=== PATIENT | male | born 2000 | race Caucasian/White ===

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

== ENCOUNTER 2019-05-03 18:45 | Emergency (ER) | payer MEDICAID, SELFPAY ==
[2019-05-03 18:51] VITALS: BP 187/100; PULSE 105; RESP 18; TEMP 36.5; O2SAT 97
--- NOTE | 2019-05-03 19:10 | ED.GENADUL_ITS ---
Discharge Plan Disposition Patient Disposition: HOME Condition: Improving Discharge Details Chief Complaint: DentalOral Clinical Impression: Odontalgia Primary Care Provider: Adina Flaherty ED Provider: Jose Juan Olivas Home Meds and New Rx's Prescriptions: New penicillin V potassium 500 mg tablet 500 mg PO TID 10 Days Qty: 30 RF: 0 Continued epinephrine [EpiPen 2-Josh] 0.3 MG/0.3 ML auto-injector 0.3 mg IJ PRN PRNRF: 0 ibuprofen 600 MG tablet 800 mg PO Q8H RF: 0 Discharge Instructions Instructions: Toothache (ED) Additional Instructions: Salt water gargles to reduce discomfort and speed healing. Please follow-up with dentistry to make an outpatient appointment. Take penicillin as prescribed. May continue ibuprofen 800 mg every 8 hours, with food. May also use Tylenol 650 to 975 mg every 6 hours as needed for pain. May use dental wax as provided and available [id number] to cover the broken tooth. Return for increasing pain, fever, facial swelling, or any other acute concern. Please follow[facility]up with [facility] for recheck and to recheck your blood pressure. Medical Decision Making 19-year-old male presents from home with 1 day of right upper tooth pain and mild face swelling this morning that has resolved. He states the pain was somewhat improved with ibuprofen. He has not seen a dentist in many years. He arrives in some pain with elevated blood pressure. His pulse was not tachycardic at the time of my evaluation. He has broken buccal cusps of tooth #1, and appears to be developing an apical dental infection. I offered dental block which she declined. Patient was given Tylenol, started on penicillin, referred for outpatient dentistry follow-up. He understands indications to seek reevaluation. HPI General Mode of arrival: ambulatory . Date/Time Provider Initiated Documentation: 05/03/19 18:46 . Limitations to Documentation: no limitations . Information obtained by: patient . History of Present Illness 19 year old M presents to the emergency department with the chief complaint of Right upper dental pain beginning last night, described as moderate, Quality is described as dull and constant, and is localized to the mouth. Patient reports no radiation. Patient started experiencing this hour(s) and it has been constant. No relieving factors improve symptom(s), No exacerbating factors reported . Patient notes other (No change to voice, no drooling, no sore throat); denies fever/chills. Patient did receive the following treatments prior to arrival, NSAID Related Data Home Medications Medication Instructions Recorded Confirmed epinephrine [EpiPen 2-Josh] 0.3 mg IJ PRN PRN 01/10/17 05/03/19 ibuprofen 800 mg PO Q8H 05/03/19 05/03/19 penicillin V potassium 500 mg PO TID 10 Days #30 tab 05/03/19 Previous Rx's Medication Instructions Recorded penicillin V potassium 500 mg PO TID 10 Days #30 tab 05/03/19 Allergies Allergy/AdvReac Type Severity Reaction Status Date / Time bee venom protein (honey bee) Allergy Anaphylaxsi Unverified 05/03/19 18:55 s General Stated Complaint: DentalOral YOBANI: 5 Review of Systems Narrative: See HPI, 4 systems reviewed and otherwise negative [facility] Medical History No acute medical problems (Acute) Surgical History (Updated 05/03/19 @ 18:56 by Lisa Maciel) No history of previous surgery (Acute) No pertinent past surgical history (Acute) Social History Smoking/Tobacco Use Status: Never Alcohol Intake: never Drug use: Never Substance use type: does not use Do you feel safe at home: Yes Do you feel safe in your relationship?: Yes Exam Narrative Exam Narrative: GEN: awake, alert, oriented 3. Pleasant, well groomed, interactive. HEAD: Normocephalic, atraumatic ENT: Mucous membranes moist, oropharynx with broken buccal cusps of tooth #1. Tender without fluctuance, no buccal or lingual swelling. External ear exam unremarkable EYES: PERRL, EOMI NECK: Full ROM, no JOSHUA, no menigismus CHEST/RESP: Nontender, clear to auscultation bilateral, no wheeze/rhonchi/rales CARDIOVASCULAR: RRR, not tachycardic at the time of my exam, no murmur, rub daniel. 2+ Rad pulse bilateral Neuro: Grossly normal neurologic exam, conversant, interactive. Psych: Speech fluent, thoughts congruent, affect normal Course Vital Signs Vital signs: Vital Signs Temperature 36.5 C 05/03/19 18:51 Pulse 105 H 05/03/19 18:51 Respiratory Rate 18 05/03/19 18:51 Blood Pressure 187/100 H 05/03/19 18:51 Pulse Oximetry 97 05/03/19 18:51 Temperature 36.5 C 05/03/19 18:51 Temperature Source Skin 05/03/19 18:51 Pulse 105 H 05/03/19 18:51 Respiratory Rate 18 05/03/19 18:51 Respiratory Effort Non-Labored 05/03/19 18:56 Blood Pressure 187/100 H 05/03/19 18:51 Pulse Oximetry 97 05/03/19 18:51 Pain Level 6 05/03/19 18:56
[2019-05-03] MEDS: Acetaminophen 500 MG TAB 1000 MG PO (19:26)
[2019-05-03] MEDS: Penicillin V POTASSIUM 500 MG TAB, 4 TABS/BTL PO (19:26)
== END 2019-05-03 19:35 | disposition home or self-care (01) ==
PROVIDERS: Emergency Provider Emergency Medicine; PCP Nurse Practitioner Family
DX: R68.84 Jaw pain (principal); R22.0 Localized swelling, mass and lump, head; R03.0 Elevated blood-pressure reading, without diagnosis of hypertension
CPT/HCPCS: 99283

== ENCOUNTER 2020-06-30 05:16 | Emergency (ER) | payer MEDICAID, SELFPAY ==
[2020-06-30 05:22] VITALS: BP 173/86; PULSE 98; RESP 16; TEMP 36.3; O2SAT 95
--- NOTE | 2020-06-30 05:23 | W.ED.GENAD ---
Discharge Plan Disposition Patient Disposition: HOME Condition: Stable Discharge Details Clinical Impression: Foot pain, right Primary Care Provider: Adina Flaherty ED Provider: Selwyn Orellana Home Meds and New Rx's Prescriptions: Continued epinephrine [EpiPen 2-Josh] 0.3 MG/0.3 ML auto-injector 0.3 mg IJ PRN PRNRF: 0 ibuprofen 600 MG tablet 800 mg PO Q8H RF: 0 lorazepam 1 mg Tablet 1 mg PO QHS PRNRF: 0 Discharge Instructions Instructions: Plantar Fasciitis (ED), Plantar Fasciitis Exercises (ED) Additional Instructions: Your xray was normal. I suspect you have plantar fasciitis follow up with your primary care provider if pain conitnues in a week if severe worsening pain, fevers or if you feel more ill return to the emergency department Stand Alone Forms: Work Release Medical Decision Making 20 yo male with no chronic medical problems comes in with right plantar foot pain. He denies any known injury or falls, but is on his feet frequently for work. He states he has pain on the plantar surface of his mid foot. NO fevers or swelling and no pain elsewhere. He has no swelling on exam, full range of motion of the ankle and toes with normal sensation and pulses. Does have pain with palpation to the plantar surface of the mid foot. Suspect plantar fascitis but will obtain xray to evaluate for possible stress fracture though unlikely based on exam. No findings to suggest septic joint or other infectious etiology at this time. xray unremarkable for fracture. Continues to have no signs of infection on exam, suspect plantar fascitis, will have him take prn tylenol and ibuprofen and advised to f/u with pcp if pain continues in a week Differential Diagnosis Differential Diagnosis: stress injury, fracture Imaging Data Radiologic Study: Attestation: I personally reviewed and interpreted this imaging study as follows: Imaging: X-Ray Radiologist's impression: IMPRESSION: Question mild swelling along the plantar surface of the foot No stress fracture noted HPI General Mode of arrival: ambulatory. Date/Time Provider Initiated Documentation: 06/30/20 05:22. Limitations to Documentation: no limitations. Information obtained by: patient. History of Present Illness 20 year old M presents to the emergency department with the chief complaint of right foot pain, described as moderate, Quality is described as aching, and is localized to the right and lower extremity. Patient reports no radiation. Patient started experiencing this day(s) (5) and it has been constant. Rest improves symptom(s), Other factors that worsen symptoms (standing on feet) . Patient notes no other symptoms.. Patient did receive the following treatments prior to arrival, NSAID Related Data Home Medications Medication Instructions Recorded Confirmed epinephrine [EpiPen 2-Josh] 0.3 mg IJ PRN PRN 01/10/17 06/30/20 ibuprofen 800 mg PO Q8H 05/03/19 06/30/20 lorazepam 1 mg PO QHS PRN 06/30/20 06/30/20 Allergies Allergy/AdvReac Type Severity Reaction Status Date / Time bee venom protein (honey bee) Allergy Anaphylaxsi Unverified 06/30/20 05:25 s General YOBANI: 5 Review of Systems All systems reviewed & are unremarkable except as noted in HPI and below Constitutional Constitutional: Denies chills, Denies fever(s) and Denies weakness Cardiovascular Cardiovascular: Denies chest pain and Denies dyspnea Respiratory Respiratory: Denies cough and Denies dyspnea Gastrointestinal Gastrointestinal: Denies abdominal pain, Denies nausea and Denies vomiting Genitourinary Genitourinary: Denies dysuria Musculoskeletal Musculoskeletal: Denies joint swelling Integumentary/Breasts Skin/Breast: Denies rash Neurologic Neurologic: Denies weakness [facility] Medical History (Updated 06/30/20 @ 05:43 by Selwyn Orellana MD) No acute medical problems Surgical History (Updated 05/03/19 @ 18:56 by Lisa Maciel) No history of previous surgery No pertinent past surgical history Social History Smoking/Tobacco Use Status: Never Smoking risk assessment performed?: Yes Alcohol Intake: never Drug use: Never Substance use type: does not use Do you feel safe at home: Yes Do you feel safe in your relationship?: Yes Exam Const General: no acute distress Orientation: alert HENMT Head: normal to inspection Ears: external ears normal General nose exam: external nose normal Mouth: moist mucous membranes Eyes General: appearance normal, both eyes and all related structures Neck Neck: normal visual inspection Resp Effort & Inspection: normal respiratory effort and able to speak in complete sentences Cardio Rate: regular rate Skin General skin exam: no rashes or lesions noted Neuro General: patient alert and patient oriented x3 Extrem General: normal to inspection, full ROM and capillary refill normal Psych Mental Status: mental status grossly normal
--- NOTE | 2020-06-30 05:42 | DI.RAD_ITS ---
EXAM: XR FOOT RT COMPLETE CLINICAL HISTORY: plantar footpain, ?stress fracture. TECHNIQUE: 2D digital imaging was performed. COMPARISON: No exams were available for comparison FINDINGS: There is no evidence of fracture or diastasis of the Lisfranc joint. However, there is a small calci fication within the interspace between the bases of the 1st and 2nd metatarsals at the Lisfranc joint level. This may reflect prior trauma. Correlation with site of tenderness is recommended. There i s, however, no abnormal offset of the cortices at the Lisfranc joint level. Remainder of the bones a ppear unremarkable. There is no dorsal swelling along foot. There may be subtle swelling on the alessandro ntar surface of the foot. There is no radiopaque foreign body. IMPRESSION: DATA REPOSITORY: RADIATION DOSE DELIVERED:
--- NOTE | 2020-06-30 05:58 | DI.VRAD_ITS ---
PROCEDURE INFORMATION: Exam: XR Right Foot Exam date and time: 06/30/2020 5:43 AM Age: 20 years old Clinical indication: Right; Patient HX: Plantar foot pain, ? stress FX TECHNIQUE: Imaging protocol: XR Right foot. Views: 3 or more views. COMPARISON: No relevant prior studies available. FINDINGS: Bones/joints: No acute fracture or dislocation. No areas of increased density to suggest stress fracture Soft tissues: Question mild swelling along the plantar surface of the foot IMPRESSION: Question mild swelling along the plantar surface of the foot No stress fracture noted Dictated and Authenticated by: Eulogio Farmer MD. Ordering:SOBEIDA Samano MD
== END 2020-06-30 06:10 | disposition home or self-care (01) ==
PROVIDERS: Emergency Provider Emergency Medicine; PCP Nurse Practitioner Family
DX: M79.671 Pain in right foot (principal)
CPT/HCPCS: 99283; 73630

== ENCOUNTER 2021-03-22 13:16 | Outpatient (CLI) | payer MEDICAID, SELFPAY ==
--- NOTE | 2021-03-22 | DI.US_ITS ---
Exam(s) US LOWER EXTREMITY VENOUS RT EXAM: US LOWER EXTREMITY VENOUS RT CLINICAL HISTORY: RT LEG PAIN, M79.604. TECHNIQUE: Ultrasound performed using standard protocol. COMPARISON: No exams were available for comparison FINDINGS: Duplex venous ultrasound was performed according to the usual protocol. The deep veins are freely com pressible throughout and there is normal flow augmentation with manual calf compression. 2D and Doppl er evaluation are unremarkable. IMPRESSION: No evidence of deep venous thrombosis of the right lower extremity. DATA REPOSITORY:
== END 2021-03-22 13:36 ==
PROVIDERS: PCP Nurse Practitioner Family; Visit Provider Family Medicine
DX: M79.604 Pain in right leg (principal)
CPT/HCPCS: 93971

== ENCOUNTER 2021-03-24 00:47 | Outpatient (CLI) | payer MEDICAID, SELFPAY ==
--- NOTE | 2021-03-24 | DI.RAD_ITS ---
Exam(s) XR FOOT RT COMPLETE EXAM: XR FOOT RT COMPLETE CLINICAL HISTORY: RT FOOT PAIN, M79.671. TECHNIQUE: 2D digital imaging was performed. COMPARISON: CR,XR XR FOOT RT COMPLETE from 06/30/2020 FINDINGS: BONES: No acute fracture is present. No bony destructive lesion is seen. There is a spur at the dors al articular aspect of the navicular. No significant joint space narrowing in the ankle or foot.. JOINTS: No dislocation present. SOFT TISSUE: Normal. IMPRESSION: Unremarkable radiographs of the right foot. DATA REPOSITORY: RADIATION DOSE DELIVERED:
== END 2021-03-24 01:07 ==
PROVIDERS: PCP Nurse Practitioner Family; Visit Provider Nurse Practitioner Family
DX: M79.671 Pain in right foot (principal); M77.51 Other enthesopathy of right foot and ankle
CPT/HCPCS: 73630

== ENCOUNTER 2021-10-06 05:44 | Emergency (ER) | payer MEDICAID, SELFPAY ==
[2021-10-06 05:49] VITALS: BP 160/95; PULSE 85; RESP 16; TEMP 37.3; O2SAT 97
--- NOTE | 2021-10-06 06:09 | ED.GENADUL_ITS ---
Discharge Plan Disposition Patient Disposition: HOME Condition: Stable Discharge Details Clinical Impression: Plantar fasciitis of left foot Primary Care Provider: Adina Flaherty ED Provider: Bj Craft Home Meds and New Rx's Prescriptions: Continued epinephrine [EpiPen 2-Josh] 0.3 MG/0.3 ML auto-injector 0.3 mg IJ PRN PRN ibuprofen 600 MG tablet 800 mg PO Q8H lorazepam 1 mg Tablet 1 mg PO QHS PRN Discharge Instructions Instructions: Plantar Fasciitis (ED), Plantar Fasciitis Exercises (ED) Additional Instructions: Use crutches over the next week. Weight-bear as tolerated. Use supportive shoe.. If symptoms persist, please follow-up with podiatry. Return to the emergency department immediately for any worsening or new concerning symptoms. Stand Alone Forms: Work Release Referrals: Adina Flaherty [Primary Care Provider] - Joshua Evangelista DPM [[facility] STAFF PHYSICIAN] - Medical Decision Making 20-year-old male with history of plantars fasciitis affecting his right foot with multiple flares, now with pain in his left foot. Presentation is consistent with plantars fasciitis. Plan to treat with ibuprofen. I will provide crutches and patient was instructed to rest and use crutches weight-bear as tolerated. Patient requesting work note. HPI General Mode of arrival: ambulatory . Date/Time Provider Initiated Documentation: 10/06/21 05:58 . Limitations to Documentation: no limitations . Information obtained by: patient . HPI Narrative: 21-year-old male with history of Planter fasciitis affecting his right foot, presents with chief complaint of left foot pain. Pain started last night and has persisted. Pain moderate to severe, worse with ambulation and weightbearing. There is associated tingling of the foot. Symptoms feel exactly the same as last year when he was diagnosed with plantar fasciitis of the right foot. Patient denies injury. Related Data Home Medications Medication Instructions Recorded Confirmed epinephrine 0.3 mg/0.3 mL 0.3 mg IJ PRN PRN 01/10/17 10/06/21 injection, auto-injector (EpiPen 2-Josh) ibuprofen 600 mg tablet 800 mg PO Q8H 05/03/19 10/06/21 lorazepam 1 mg tablet 1 mg PO QHS PRN 04/29/21 04/29/21 Allergies Allergy/AdvReac Type Severity Reaction Status Date / Time bee venom protein (honey bee) Allergy Anaphylaxsi Unverified 10/06/21 05:53 s General Stated Complaint: Orthopedic YOBANI: 3 Review of Systems Constitutional Constitutional: Denies fever(s) Musculoskeletal Musculoskeletal: Reports as per HPI Neurologic Neurologic: Reports as per HPI PFSH All Active Problems Foot pain, right (Acute) Plantar fasciitis of left foot (Acute) Medical History No acute medical problems Surgical History No history of previous surgery No pertinent past surgical history Social History Smoking/Tobacco Use Status: Never Smoking risk assessment performed?: Yes Alcohol Intake: current Alcohol Intake frequency: a few times a month Alcohol type: beer Drug use: Never Substance use type: does not use Do you feel safe at home: Yes Do you feel safe in your relationship?: Yes Exam Const General: cooperative and comfortable Nutritional Appearance: average body habitus Orientation: alert Extrem Left lower extremity: foot Details: normal capillary refill, tenderness Location: of the plantar foot Location: proximally and of the mid foot Location: along the plantar surface, no edema, vascular exam Details: dorsalis pedis pulse present and motor-sensory exam Details: light-touch normal; no unusual warmth and no ecchymosis Course Vital Signs Vital signs: Vital Signs Temperature 37.3 C 10/06/21 05:49 Pulse 85 10/06/21 05:49 Respiratory Rate 16 10/06/21 05:49 Blood Pressure 160/95 H 10/06/21 05:49 Pulse Oximetry 97 10/06/21 05:49 Temperature 37.3 C 10/06/21 05:49 Temperature Source Oral 10/06/21 05:49 Pulse 85 10/06/21 05:49 Respiratory Rate 16 10/06/21 05:49 Respiratory Effort Non-Labored 10/06/21 05:54 Blood Pressure 160/95 H 10/06/21 05:49 Blood Pressure Position Sitting 10/06/21 05:49 Pulse Oximetry 97 10/06/21 05:49 Oxygen Delivery Method Room Air 10/06/21 05:49 Oxygen Flow Rate 0 10/06/21 05:49 Pain Level 10 10/06/21 05:54 Comment 10/06/21 05:49 PAWSS Have you Been Recently Intoxicated or Drunk Within the Last 30 days?: No Have you Ever Experienced Previous Episodes of Alcohol Withdrawal?: No Have you ever Experienced Withdrawal Seizures?: No Have you ever Experienced Delirium Tremens(DT)s?: No Have you ever undergone Alcohol Rehabilitation Treatment (i.e, inpt ot outpatient treatment programs)?: No Have you ever Experienced Blackouts?: No Have you ever Combined Alcohol with other Downers within the last 90 days?: No Have you ever Combined Alcohol with any other Substance of Abuse during the last 90 days?: No Positive Blood Alcohol level on Presentation? [PCS.BAL]: No Evidence of Increased Autonomic Activity (i.e. HR>120, tremor, sweating, agitation, nausea)?: No Result: 0
[2021-10-06] MEDS: Ibuprofen 600 MG TAB PO (06:17)
[2021-10-06 06:30] VITALS: BP 160/95; PULSE 85; RESP 16; TEMP 37.3; O2SAT 97
== END 2021-10-06 06:33 | disposition home or self-care (01) ==
PROVIDERS: Emergency Provider Student in an Organized Health Care Education/Training Program; PCP Nurse Practitioner Family
DX: M72.2 Plantar fascial fibromatosis (principal)
CPT/HCPCS: 99282

== ENCOUNTER 2022-12-03 14:27 | Emergency (ER) | payer MEDICAID, SELFPAY ==
[2022-12-03 14:32] VITALS: BP 183/111; PULSE 102; RESP 16; TEMP 37.6; O2SAT 99
--- NOTE | 2022-12-03 15:02 | W.ED.GENAD ---
Discharge Plan Disposition Patient Disposition: Home Condition: Stable Discharge Details Clinical Impression: Plantar fasciitis, right Primary Care Provider: Adina Flaherty ED Provider: Bj Craft Home Meds and New Rx's Prescriptions: Continued epinephrine [EpiPen 2-Josh] 0.3 MG/0.3 ML auto-injector 0.3 mg IJ PRN PRN lorazepam 1 mg Tablet 1 mg PO QHS PRN ibuprofen 600 MG tablet 600 mg PO Q8H PRN (Reason: pain) Qty: 60 0RF Discharge Instructions Instructions: Plantar Fasciitis (ED), Plantar Fasciitis Exercises (ED) Additional Instructions: Rest your foot -- Use orthopedic shoe and crutches over the next few days. Take ibuprofen as prescribed. Please follow-up with podiatry. Call for an appointment. Please follow-up with a primary care physician. Your blood pressure was elevated today. This should be rechecked and if it remains elevated you may need medication. Please make an appointment to be seen as soon as possible and follow-up. Please return to the Emergency Department immediately for any worsening or new concerning symptoms. Stand Alone Forms: Work Release Referrals: Adina Flaherty [Primary Care Provider] - Anne Schaefer DPM [[facility] STAFF PHYSICIAN] - Medical Decision Making 1512 --22-year-old male with prior history of Planter fasciitis, here with plantar foot pain on the right. Patient neurovascular intact distally. Suspect plantar fasciitis. Plan for rest for the next 2 days. I will provide crutches and a postoperative shoe. I will refer to follow-up with podiatry. Patient will need more supportive shoes and potentially benefit from orthotics. Patient does have elevated blood pressure today. He notes prior history of elevated blood pressure that was treated by Dr. Mar in the past. He notes he is not established with a PCP at this time. He has been off of medication was used to treat anxiety and blood pressure for some time. He thinks blood pressure is particularly high today because of pain. I counseled the patient on need to follow-up with PCP and recommended he schedule follow-up as soon as possible and that should blood pressure remain elevated he will benefit from treatment. Usual and customary discharge instructions reviewed with the patient. HPI General Mode of arrival: ambulatory. Date/Time Provider Initiated Documentation: 12/03/22 14:44. Limitations to Documentation: no limitations. Information obtained by: patient. HPI Narrative: 22-year-old male with history of Planter fasciitis in the past, presents with chief complaint of right foot pain. Patient notes pain in the sole of his right foot with started 3 days ago and has persisted. Patient notes feels same as prior flare of planter fasciitis. He states he has had this in both his feet. He has an exacerbation every 6 to 7 months. Patient does not recall any specific injury recently. Related Data Home Medications Medication Instructions Recorded Confirmed epinephrine 0.3 mg/0.3 mL 0.3 mg IJ PRN PRN 01/10/17 12/03/22 injection, auto-injector (EpiPen 2-Josh) lorazepam 1 mg tablet 1 mg PO QHS PRN 06/30/20 12/03/22 ibuprofen 600 mg tablet 600 mg PO Q8H PRN pain #60 tabs 10/06/21 12/03/22 Previous Rx's Medication Instructions Recorded ibuprofen 600 mg tablet 600 mg PO Q8H PRN pain #60 tabs 10/06/21 Allergies Allergy/AdvReac Type Severity Reaction Status Date / Time bee venom protein (honey bee) Allergy Anaphylaxsi Unverified 12/03/22 15:00 s General Stated Complaint: Orthopedic YOBANI: 4 Review of Systems Musculoskeletal Musculoskeletal: Reports as per HPI PFSH All Active Problems Foot pain, right (Acute) Plantar fasciitis, right (Acute) Medical History No acute medical problems Surgical History No history of previous surgery No pertinent past surgical history Social History Smoking/Tobacco Use Status: Never Smoking risk assessment performed?: Yes Alcohol Intake: current Alcohol Intake frequency: a few times a month Alcohol type: beer Drug use: Never Substance use type: does not use Do you feel safe at home: Yes Do you feel safe in your relationship?: Yes Exam Cardio Rate: regular rate Rhythm: regular rhythm Extrem Right lower extremity: foot Details: normal capillary refill, tenderness Location: of the plantar foot Location: proximally, toes with normal ROM, vascular exam Details: dorsalis pedis pulse present (2+) and motor-sensory exam Details: light-touch normal; no unusual warmth, no edema and no ecchymosis Course Vital Signs Vital signs: Vital Signs Temperature 37.6 C H 12/03/22 14:32 Pulse 102 H 12/03/22 14:32 Respiratory Rate 16 12/03/22 14:32 Blood Pressure 183/111 H 12/03/22 14:32 Pulse Oximetry 99 12/03/22 14:32 Temperature 37.6 C H 12/03/22 14:32 Temperature Source Skin 12/03/22 14:32 Pulse 102 H 12/03/22 14:32 Respiratory Rate 16 12/03/22 14:32 Blood Pressure 183/111 H 12/03/22 14:32 Blood Pressure Position Sitting 12/03/22 14:32 Pulse Oximetry 99 12/03/22 14:32 Oxygen Delivery Method Room Air 12/03/22 14:32 Oxygen Flow Rate 0 12/03/22 14:32 Pain Level 6 12/03/22 14:32
--- NOTE | 2022-12-03 15:09 | NUR.NOTE ---
Referred Pt to Podiatry for Plantar Fasciitis Referred Pt to PCP for Hypertension Nursing Note:
[2022-12-03 15:27] VITALS: BP 195/114; PULSE 90; RESP 16; TEMP 37.6; O2SAT 99
== END 2022-12-03 15:37 | disposition home or self-care (01) ==
PROVIDERS: Emergency Provider Student in an Organized Health Care Education/Training Program; PCP Nurse Practitioner Family
DX: M72.2 Plantar fascial fibromatosis (principal)
CPT/HCPCS: 99283

== ENCOUNTER 2022-12-13 11:37 | Outpatient (REF) | payer MEDICAID, SELFPAY ==
[2022-12-13 15:33] LABS: Abs Immature Grans 0.09 10^3/uL (0.0-0.06); Absolute Basophil Count 0.06 10^3/uL (0.0-0.2); Absolute Eosinophil Count 0.21 10^3/uL (0.0-0.7); Absolute Lymphocyte Count 2.72 10^3/uL (1.2-3.4); Absolute Monocyte Count 0.82 10^3/uL (0.1-0.8); Absolute Neutrophil Count 6.67 10^3/uL (1.2-6.7); Basophils % 0.6; HCT 41.5 % (40.0-50.0); HGB 12.6 g/dL (13.5-17.5); Immature Grans % 0.9; Lymphocytes % 25.7; MCH 19.4 pg (27.0-33.0); MCHC 30.4 % (32.0-36.0); MCV 64 fL (80-95); MPV 9.9 fL (8.0-11.0); Monocytes % 7.8; Platelet Count 577 10^3/uL (130-400); RDW 17.5 % (11.8-14.1); RDW-SD 35.5 fL; WBC 10.57 10^3/uL (4.4-10.8)
[2022-12-13 15:52] LABS: ALT 55 U/L (16-63); AST 32 U/L (15-37); Alkaline Phosphatase 69 U/L (46-116); Anion Gap 8.8 mmol/L (3-11); BUN 17 mg/dL (7-18); Bilirubin, Total 0.5 mg/dL (0.2-1.0); CO2 27.2 mmol/L (21.0-32.0); CREATININE 0.9 mg/dL (0.70-1.30); Calcium 10.4 mg/dL (8.5-10.1); Calculated LDL 102 mg/dL (<100); Chloride 104 mmol/L (98-107); Cholesterol 167 mg/dL (<200); Estimated GFR 122.31 (mL/min/1.73m2); Glucose 80 mg/dL (74-106); HDL Cholesterol 33 mg/dL (40-60); Potassium 4.9 mmol/L (3.5-5.1); Sodium 140 mmol/L (136-145); Total Protein 9.6 g/dL (6.4-8.2); Triglyceride 162 mg/dL (<150)
[2022-12-13 16:31] LABS: Anisocytosis 1+; Diff Comment RBC Morph Reviewed; Hypochromasia 1+; Microcytosis 2+
== END 2022-12-13 11:38 | disposition home or self-care (01) ==
LOC: NCHCN 11:37
PROVIDERS: PCP Nurse Practitioner Family; Visit Provider Nurse Practitioner Family
DX: F41.8 Other specified anxiety disorders (principal); K76.0 Fatty (change of) liver, not elsewhere classified; E66.9 Obesity, unspecified; I10 Essential (primary) hypertension; M72.2 Plantar fascial fibromatosis; R07.89 Other chest pain
CPT/HCPCS: 80053; 80061; 85025

== ENCOUNTER 2023-12-04 22:11 | Outpatient (REF) | payer OTHER, SELFPAY ==
[2023-12-04 21:10] LABS: HCT 45.5 % (40.0-50.0); HGB 13.6 g/dL (13.5-17.5); MCH 19.3 pg (27.0-33.0); Platelet Count 500 10^3/uL (130-400); RBC 7.03 10^6/uL (4.36-5.78); WBC 13.01 10^3/uL (4.4-10.8)
[2023-12-04 21:19] LABS: ALT 39 U/L (16-63); AST 23 U/L (15-37); Albumin 4.1 g/dL (3.4-5.0); Alkaline Phosphatase 76 U/L (46-116); Anion Gap 8.6 mmol/L (3-11); BUN 10 mg/dL (7-18); Bilirubin, Total 0.69 mg/dL (0.2-1.0); CO2 26.4 mmol/L (21.0-32.0); Calcium 10.2 mg/dL (8.5-10.1); Chloride 102 mmol/L (98-107); Estimated GFR 107.12 (mL/min/1.73m2); Glucose 79 mg/dL (74-106); Potassium 4.3 mmol/L (3.5-5.1); Sodium 137 mmol/L (136-145); Total Protein 8.9 g/dL (6.4-8.2); Uric Acid 8.1 mg/dL (3.5-7.2)
[2023-12-04 21:57] LABS: MCHC 29.9 % (32.0-36.0); MCV 65 fL (80-95); RDW 17.9 % (11.8-14.1)
== END 2023-12-04 22:12 | disposition home or self-care (01) ==
LOC: NCHCN 22:11
PROVIDERS: PCP Nurse Practitioner Family; Visit Provider Nurse Practitioner Family
DX: M79.672 Pain in left foot (principal); I10 Essential (primary) hypertension
CPT/HCPCS: 80053; 85027; 84550

== ENCOUNTER 2024-07-20 15:09 | Outpatient (REF) | payer OTHER, SELFPAY ==
[2024-07-20 16:02] LABS: Absolute Basophil Count 0.08 10^3/uL (0.0-0.2); Absolute Eosinophil Count 0.25 10^3/uL (0.0-0.7); Absolute Lymphocyte Count 3.11 10^3/uL (1.2-3.4); Absolute Monocyte Count 0.86 10^3/uL (0.1-0.8); Absolute Neutrophil Count 8.11 10^3/uL (1.2-6.7); Basophils % 0.6 %; HCT 47.3 % (40.0-50.0); HGB 14.4 g/dL (13.5-17.5); Immature Grans % 0.8 %; Lymphocytes % 24.9 %; MCH 19.7 pg (27.0-33.0); MCHC 30.4 % (32.0-36.0); MCV 65 fL (80-95); MPV 10.5 fL (8.0-11.0); Monocytes % 6.9 %; Neutrophils % 64.8 %; Platelet Count 403 10^3/uL (130-400); RDW 18.8 % (11.8-14.1); RDW-SD 37.1 fL; WBC 12.51 10^3/uL (4.4-10.8)
[2024-07-20 16:15] LABS: BUN 13 mg/dL (7-18); CREATININE 1.1 mg/dL (0.70-1.30); Calcium 10.4 mg/dL (8.5-10.1); Chloride 105 mmol/L (98-107); Estimated GFR 94.95 (mL/min/1.73m2); Glucose 89 mg/dL (74-106); Potassium 4.8 mmol/L (3.5-5.1); Sodium 144 mmol/L (136-145); Uric Acid 7.7 mg/dL (3.5-7.2)
[2024-07-20 16:28] LABS: Diff Comment RBC Morph Reviewed
[2024-07-20 16:29] LABS: Microcytosis 2+
[2024-07-21 10:30] LABS: Lyme Ab w Rflx to Lyme Confirm Positive (Negative)
[2024-07-21 11:06] LABS: Lyme IgG Ab Positive (Negative); Lyme IgM Ab Negative (Negative)
[2024-07-22 20:37] LABS: Anaplasma phagocytophilum Negative (Negative); B. miyamotoi PCR Negative (Negative); Babesia divergens/MO-1 Negative (Negative); Babesia duncani Negative (Negative); Babesia microti Negative (Negative); Ehrlichia chaffeensis Negative (Negative); Ehrlichia ewingii/canis Negative (Negative); Ehrlichia muris eauclairensis Negative (Negative)
== END 2024-07-20 15:10 | disposition home or self-care (01) ==
LOC: NCHCN 15:09
PROVIDERS: PCP Nurse Practitioner Family; Visit Provider Nurse Practitioner Family
DX: M25.561 Pain in right knee (principal)
CPT/HCPCS: 80048; 86617; 87798; 84550; 85025; 86618

== ENCOUNTER 2024-07-20 15:23 | Outpatient (CLI) | payer OTHER, SELFPAY ==
--- NOTE | 2024-07-20 | DI.RAD_ITS ---
Exam(s) XR KNEE RT 3V AP,LAT,MELISSA EXAM: XR KNEE RT 3V AP,LAT,MELISSA CLINICAL HISTORY: PAIN JOINT KNEE RT, M25.561. TECHNIQUE: 2D digital imaging was performed of the right knee. Three views obtained. AP, lateral an d PA tunnel views were obtained. COMPARISON: No exams were available for comparison FINDINGS: BONES: No acute fracture is present. No bony destructive lesion is seen. JOINTS: The knee is normally aligned. There is a small joint effusion. No radiopaque foreign bodies are seen. SOFT TISSUE: Normal. IMPRESSION: Small joint effusion. DATA REPOSITORY: RADIATION DOSE DELIVERED:
--- NOTE | 2024-07-20 | DI.US_ITS ---
Exam(s) US LOWER EXTREMITY VENOUS RT EXAM: US LOWER EXTREMITY VENOUS RT CLINICAL HISTORY: Pain in rt knee, M25.561. TECHNIQUE: Lower extremity venous ultrasound performed using grayscale, color-flow, and spectral Do ppler analysis. COMPARISON: No exams were available for comparison FINDINGS: The common femoral, femoral and popliteal veins demonstrate normal compressibility, augmentation, and color Doppler. The posterior tibial and peroneal veins are patent. No saphenous vein thrombosis or other superficial venous thrombosis is seen. No hematoma or West's cyst is seen. Small amount of fluid noted at the medial knee. IMPRESSION: No evidence of DVT. DATA REPOSITORY:
== END 2024-07-20 15:43 ==
PROVIDERS: PCP Nurse Practitioner Family; Visit Provider Nurse Practitioner Family
DX: M25.561 Pain in right knee (principal)
CPT/HCPCS: 73562; 93971